=== PATIENT | male | born 1975 | race Caucasian/White ===

== ENCOUNTER 2017-04-18 17:28 | Emergency (ER) | payer SELFPAY ==
[2017-04-18] MEDS ORDERED: MORPHINE SULFATE 5 MG/ML PFS IVP ONE (17:29)
[2017-04-18] MEDS ORDERED: PROPARACAINE HCL OPTH 15ML BTL OPTH ONE (17:29)
[2017-04-18] MEDS ORDERED: 0.9 % SODIUM CHLORIDE 1,000 ML BAG IV ONE (17:29)
[2017-04-18 17:36] LABS: BASO % 0.3 % (0-6); EOS % 1.5 % (0-6); GRAN % 70.3 % (47-80); HEMATOCRIT 49.2 % (42.0-52.0); HEMOGLOBIN 17.3 gm/dl (14.0-18.0); LYMPH % 21.8 % (16-45); MEAN CELL VOLUME 90.6 fl (81-97); MEAN CORPUSCULAR HEMOGLOBIN 31.9 pg (27-33); MEAN CORPUSCULAR HGB CONC 35.2 g/dl (32-36); MEAN PLATELET VOLUME 9.3 fl (7.4-10.4); MONO % 6.1 % (0-9); PLATELET COUNT 272 K/uL (130-400); RED BLOOD COUNT 5.43 M/uL (4.40-5.70); RED CELL DISTRIBUTION WIDTH 13.5 % (11.5-14.5); WHITE BLOOD COUNT W/O DIFF 13.6 K/uL (4.2-12.2)
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
[2017-04-18] MEDS ORDERED: ONDANSETRON HCL IV 4 MG/2 ML VIAL IVP ONE (17:47)
[2017-04-18 17:49] LABS: ALB/GLOB RATIO 1.4 (1.1-1.8); ALBUMIN 4.8 gm/dL (3.5-5.0); ALKALINE PHOSPHATASE 90 U/L (38-126); ALT/SGPT 26 U/L (21-72); ANION GAP 10.2 (7-16); AST/SGOT 42 U/L (17-59); BILIRUBIN,TOTAL 0.87 mg/dL (0.2-1.3); BLOOD UREA NITROGEN 17 mg/dL (9-20); CARBON DIOXIDE 30.8 mmol/L (22-30); CREATININE 1.1 mg/dL (0.66-1.25); EST GLOMERULAR FILTRATION RATE > 60 ml/min; GLUCOSE,RANDOM 140 mg/dL (70-110); TOTAL PROTEIN 8.2 gm/dL (6.3-8.2)
[2017-04-18 17:50] LABS: INR 0.92; PARTIAL THROMBOPLASTIN TIME 26.8 SECONDS (24.5-39.1); PROTHROMBIN TIME (PATIENT) 10.4 SECONDS (9.5-12.1)
[2017-04-18] MEDS ORDERED: SULFACETAMIDE SODIUM 15ML BTL OPTH SCH (18:45)
[2017-04-18] MEDS ORDERED: SULFACETAMIDE SODIUM 15ML BTL OPTH ONE (18:48)
== END 2017-04-18 19:04 | disposition left against medical advice (07) ==
LOC: ER 17:28
DX: T26.12XA Burn of cornea and conjunctival sac, left eye, initial encounter (principal); T26.11XA Burn of cornea and conjunctival sac, right eye, initial encounter; T22.111A Burn of first degree of right forearm, initial encounter; T20.16XA Burn of first degree of forehead and cheek, initial encounter; X17.XXXA Contact with hot engines, machinery and tools, initial encounter; W40.1XXA Explosion of explosive gases, initial encounter
CPT/HCPCS: 99284 ×2; 96374; 96375; 85025; 85730; 85610; 80053; G0480; J2405; J2270; 80320; J7030